=== PATIENT | male | born 1930 | race Two or more races ===

== ENCOUNTER 2017-02-20 10:14 | Emergency (ER) | payer OTHER, MEDICAID ==
[~2017-02-20] VITALS: Ht 162.6 cm; Wt 68.0 kg
[2017-02-20 10:35] VITALS: BP 154/92
[2017-02-20] MEDS ORDERED: MOM30 ML ORAL (10:41)
[2017-02-20] MEDS ORDERED: CATAPRES-TTS 11 EACH TDERMAL (10:41)
[2017-02-20] MEDS ORDERED: ARICEPT10 MG ORAL (10:41)
[2017-02-20] MEDS ORDERED: COLACE100 MG ORAL (10:41)
[2017-02-20] MEDS ORDERED: ACETAMINOPHEN325 M1 ORAL (10:41)
[2017-02-20] MEDS ORDERED: DEPAKOTE125 MG PO (10:41)
[2017-02-20] MEDS ORDERED: TAMSULOSIN HCL0.4 MG ORAL (10:41)
--- NOTE | 2017-02-20 11:44 | Diagnostic Imaging Report ---
Indication: PAIN Technique: 3 views of the right knee Comparison: None Findings:No definite acute fractures. No dislocations. Large ossified fabella. Suspect there are intra-articular loose bodies adjacent to the tibial spines. There is mild medial compartmental degenerative joint space narrowing. There is slight lateral subluxation of the tibia, presumably related to such. There are medial and lateral osteophytes Impression:Degenerative changes, as described No definite acute bony trauma Possible intra-articular loose bodies
[2017-02-20 12:26] VITALS: BP 148/77
[2017-02-20] MEDS ORDERED: LIDODERM700 M1 TOPIC (12:45)
--- NOTE | 2017-02-20 13:26 | Emergency Room Report ---
History of Present Illness General Chief Complaint: Pain Source: Patient, Medical Record Present Illness HPI Patient is a 86-year-old male who presented after a recent fall. The patient was noted to be detention resident who had left his detention. The patient was noted to have some abrasions to his extremities. History is limited by patient's mental status and confusion. The patient states that prior history of arthritis. He does not recall any recent trauma however there is some abrasions to his leg. Patient markedly limited by patient's mental status Allergies: Coded Allergies: No Known Allergies (Unverified , 02/20/17) Patient History Past Medical History: see triage record Reviewed Nursing Documentation: PMH: Agreed, PSxH: Agreed Nursing Documentation-PMH Past Medical History Deferred: Pt Cognitively Impaired Hx Hypertension: Yes History Of Psychiatric Problem: Yes - ALZHEIMERS, SCHIZOPHRENIA, DEMENTIA Review of Systems All Other Systems: limited - by mental status Physical Exam Vital Signs Date Time Temp Pulse Resp B/P (MAP) Pulse Ox O2 Delivery O2 Flow Rate FiO2 02/20/17 10:06 97.5 94 21 154/92 93 Room Air Sp02 EP Interpretation: reviewed, normal General Appearance: normal inspection, well appearing, no apparent distress, alert, Chronically Ill Head: atraumatic ENT: normal ENT inspection, hearing grossly normal, normal voice Neck: normal inspection, full range of motion, supple, no bony tend Respiratory: normal inspection, lungs clear, normal breath sounds, no respiratory distress, no retraction, no wheezing Cardiovascular #1: regular rate, rhythm, no edema Gastrointestinal: normal inspection, normal bowel sounds, non tender, soft, no guarding, no hernia Genitourinary: no CVA tenderness Musculoskeletal: normal inspection, back normal, normal range of motion Neurologic: normal inspection, alert, responsive, dinkey engineer III-XII nml as tested, speech normal, motor weakness Psychiatric: mood/affect normal Skin: no rash, abrasions - right leg Medical Decision Making Diagnostic Impression: Primary Impression: Encephalopathy Additional Impressions: Arthritis of knee, right Hyperkalemia Bifascicular block ER Course Patient presented for altered mental status. Differential diagnosis included but was not limited to ischemic stroke, subarachnoid hemorrhage, hypoglycemia, spinal cord injury, neurodegenerative disorder, urinary tract infection, hypoxemia.Because of complexity of patient's case laboratory testing and imaging studies were ordered.X-ray imaging of the knee was ordered due to patient's abrasions and pain. X-ray imaging of the right leg 3 view interpreted by me showed degenerative changes without evident fracture.The EKG interpreted by me showed bifascicular block with a rate of [address] or T wave changes.Patient was noted to be somewhat confused.The patient was GCS 14. Did not appear postictal. Patient was given IV Lasix due to elevated potassium level. The patient was discussed with [place] physician for capitated transfer for further evaluation and treatment Labs Test 02/20/17 13:05 White Blood Count 7.1 K/UL (4.8-10.8) Red Blood Count 4.14 M/UL (4.70-6.10) Hemoglobin 11.2 G/DL (14.2-18.0) Hematocrit 35.4 % (42.0-52.0) Mean Corpuscular Volume 85 FL (80-99) Mean Corpuscular Hemoglobin 27.1 PG (27.0-31.0) Mean Corpuscular Hemoglobin Concent 31.7 G/DL (32.0-36.0) Red Cell Distribution Width 14.6 % (11.6-14.8) Platelet Count 421 K/UL (150-450) Mean Platelet Volume 7.6 FL (6.5-10.1) Neutrophils (%) (Auto) 59.7 % (45.0-75.0) Lymphocytes (%) (Auto) 31.3 % (20.0-45.0) Monocytes (%) (Auto) 7.5 % (1.0-10.0) Eosinophils (%) (Auto) 0.3 % (0.0-3.0) Basophils (%) (Auto) 1.3 % (0.0-2.0) Urine Color Pale yellow Urine Appearance Clear Urine pH 7 (4.5-8.0) Urine Specific [place] 1.005 (1.005-1.035) Urine Protein 1+ (NEGATIVE) Urine Glucose (UA) Negative (NEGATIVE) Urine Ketones Negative (NEGATIVE) Urine Occult Blood Negative (NEGATIVE) Urine Nitrite Negative (NEGATIVE) Urine Bilirubin Negative (NEGATIVE) Urine Urobilinogen Normal MG/DL (0.0-1.0) Urine Leukocyte Esterase Negative (NEGATIVE) Urine RBC 0-2 /HPF (0 - 0) Urine WBC 0-2 /HPF (0 - 0) Urine Squamous Epithelial Cells Occasional /LPF Urine Bacteria None /HPF (NONE) Sodium Level 140 mEQ/L (135-145) Potassium Level 5.0 mEQ/L (3.4-4.9) Chloride Level 102 mEQ/L (98-107) Carbon Dioxide Level 26 mEQ/L (20-30) Anion Gap 12 (5-15) Blood Urea Nitrogen 23 mg/dL (7-23) Creatinine 1.5 mg/dL (0.7-1.2) Estimat Glomerular Filtration Rate mL/min (>60) Glucose Level 101 mg/dL (74-106) Calcium Level 9.6 mg/dL (8.6-10.2) Total Bilirubin 0.3 mg/dL (0.0-1.2) Aspartate Amino Transf (AST/SGOT) 16 U/L (5-40) Alanine Aminotransferase (ALT/SGPT) 10 U/L (3-41) Alkaline Phosphatase 92 U/L (40-129) Troponin I < 0.30 ng/mL (<=0.30) Total Protein 7.6 g/dL (6.6-8.7) Albumin 3.8 g/dL (3.5-5.2) Globulin 3.8 g/dL Albumin/Globulin Ratio 1.0 (1.0-2.7) EKG Diagnostic Results Rate: normal ST Segments: other - bifascicular block Last Vital Signs Date Time Temp Pulse Resp B/P (MAP) Pulse Ox O2 Delivery O2 Flow Rate FiO2 02/20/17 12:26 78 21 148/77 96 Room Air 02/20/17 12:05 97.5 Status: unchanged Disposition: XFER SHT-TRM HOSP Condition: Serious Scripts Lidocaine (Lidoderm) 1 Each Adh..patch 1 PATCH TOPIC DAILY for For Pain, #7 PATCH 0 Refills Patch(es) may remain in place for up to 12 hours in any 24-hour period. Prov: Bruce Frankel 02/20/17 Patient Instructions: Knee Pain Bruce Frankel Feb 20, 2017 13:26
[2017-02-20 13:27] LABS: BASOPHILS % (AUTO) 1.3 % (0.0-2.0); EOSINOPHILS % (AUTO) 0.3 % (0.0-3.0); LYMPHOCYTES % (AUTO) 31.3 % (20.0-45.0); MEAN CORPUSCULAR HEMOGLOBIN 27.1 PG (27.0-31.0); MEAN CORPUSCULAR HGB CONC 31.7 G/DL (32.0-36.0); MEAN CORPUSCULAR VOLUME 85 FL (80-99); MEAN PLATELET VOLUME 7.6 FL (6.5-10.1); MONOCYTES % (AUTO) 7.5 % (1.0-10.0); NEUTROPHILS % (AUTO) 59.7 % (45.0-75.0); PLATELET COUNT 421 K/UL (150-450); RED BLOOD COUNT 4.14 M/UL (4.70-6.10); RED CELL DISTRIBUTION WIDTH 14.6 % (11.6-14.8); WHITE BLOOD COUNT 7.1 K/UL (4.8-10.8)
[2017-02-20 13:36] LABS: ALANINE AMINOTRANSFERASE 10 U/L (3-41); ANION GAP 12 (5-15); ASPARTATE AMINO TRANSFERASE 16 U/L (5-40); CALCIUM 9.6 mg/dL (8.6-10.2); CARBON DIOXIDE 26 mEQ/L (20-30); CHLORIDE 102 mEQ/L (98-107); CREATININE 1.5 mg/dL (0.7-1.2); HEMOLYSIS 3; SODIUM 140 mEQ/L (135-145); TOTAL PROTEIN 7.6 g/dL (6.6-8.7)
[2017-02-20 13:37] LABS: TROPONIN I < 0.30 ng/mL (<=0.30)
[2017-02-20 13:47] LABS: APPEARANCE,URINE CLEAR; KETONES,URINE NEGATIVE (NEGATIVE); LEUKOCYTE ESTERASE ,URINE NEGATIVE (NEGATIVE); NITRITE,URINE NEGATIVE (NEGATIVE); PH,URINE 7 (4.5-8.0); PROTEIN,URINE 1+ (NEGATIVE); UROBILINOGEN,URINE NORMAL MG/DL (0.0-1.0)
[2017-02-20 14:06] VITALS: BP 187/86
[2017-02-20 14:09] LABS: RBC,URINE 0-2 /HPF (0 - 0); SQUAMOUS EPITHELIAL CELL,UR OCCASIONAL /LPF (NONE/OCC); WBC,URINE 0-2 /HPF (0 - 0)
[2017-02-20 18:15] VITALS: BP 121/101
--- NOTE | 2017-02-20 23:45 | History and Physical Report ---
DATE OF ADMISSION: 02/20/2017 TIME SEEN: At 2 p.m. CONSULTANTS: 1. Sherrell Martell M.D. 2. Son Gregg M.D. 3. Aren Weinberg M.D. CHIEF COMPLAINT: Increased confusion, weakness, and right knee pain. BRIEF HISTORY: An 86-year-old male from [facility] became very confused, actually ran outside, refused to come back, was sent to [facility], diagnosed with right knee pain and increased confusion. Currently, in the ER, no complaints. PAST MEDICAL HISTORY: Include confusion, arthritis, and hypertension. PAST SURGICAL HISTORY: Unknown. MEDICATIONS: Include lidocaine, Tylenol, ALLERGIES: Denied. SOCIAL HISTORY: The patient refused to answer. REVIEW OF SYSTEMS: No chest pain or shortness of breath. No nausea, vomiting, or diarrhea. PHYSICAL EXAMINATION: GENERAL: Calm in bed, oriented x1, no acute distress. VITAL SIGNS: Temperature is 97 degrees, pulse 78, respirations 21, and blood pressure 148/77. CARDIOVASCULAR: No murmurs. LUNGS: Distant and clear. ABDOMEN: Bowel sounds are positive. Nontender and nondistended. EXTREMITIES: No cyanosis, clubbing, or edema. NEUROLOGICAL: The patient moves all extremities, but slightly weak. LABORATORY DATA: Show hemoglobin 11.2, otherwise CBC is normal. Potassium 5.0 and creatinine 1.5. Urinalysis show 1+ protein, otherwise normal. ASSESSMENT: 1. Altered mental status. 2. Confusion. 3. Anemia. 4. History of fall with right knee pain. 5. Hyperkalemia. 6. Arthritis. 7. Hypertension. PLAN: 1. Continue premeds. 2. Pain control. 3. Blood pressure control. 4. OT, PT, and dietary evaluation. 5. CBC and BMP in the morning. 6. Dr. Martell, Dr. Gregg, Dr. Weinberg, and Dr. Gentile to consult. 7. Possible transfer. 8. We will continue to follow this patient. 9. CBC and BMP in the morning. Balbir Lizama D.O. DR: Demi JOB#: [id number] CC:
== END 2017-02-20 18:33 | disposition short-term general hospital (02) ==
LOC: EDBD 10:14 → EMR 12:00 → EDBEDREQSVC 13:22 → EMR 18:33
DX: E87.5 Hyperkalemia (principal); G93.40 Encephalopathy, unspecified; M17.11 Unilateral primary osteoarthritis, right knee; I45.2 Bifascicular block; S80.811A Abrasion, right lower leg, initial encounter; W19.XXXA Unspecified fall, initial encounter; Y93.9 Activity, unspecified; Y92.9 Unspecified place or not applicable; G30.9 Alzheimer's disease, unspecified; F02.80 Dementia in other diseases classified elsewhere, unspecified severity, without behavioral disturbance, psychotic disturbance, mood disturbance, and anxiety; F20.9 Schizophrenia, unspecified; I10 Essential (primary) hypertension
CPT/HCPCS: 36415; 73562; 80053; 81001; 82962; 84484; 85025; 87040; 93005; 96374; 99285; J1940